=== PATIENT | male | born 1950 | race Caucasian/White ===

== ENCOUNTER 2016-10-04 18:31 | Emergency (ER) | payer MEDICARE | END 2016-10-04 20:25 | disposition home or self-care (01) | LOC: ER 18:31 | DX: N13.2 Hydronephrosis with renal and ureteral calculous obstruction (principal); I10 Essential (primary) hypertension; F17.210 Nicotine dependence, cigarettes, uncomplicated; Z87.442 Personal history of urinary calculi | CPT/HCPCS: 36415; 96374; J1885 ==